=== PATIENT | male | born 1985 | race Caucasian/White ===

== ENCOUNTER 2017-09-28 01:19 | Emergency (ER) | payer BC ==
--- NOTE | 2017-09-28 02:30 | ED ---
Anxiety HPI - General Chief Complaint: Anxiety Stated Complaint: Dizziness/Vision Problems Time Seen by Provider: 09/28/17 01:36 Source: patient Mode of arrival: ambulatory - History of Present Illness Initial Comments: 31-year-old male patient presents to the emergency department today for evaluation of increased anxiety, hallucinations, and delusional episodes. Patient states he has been diagnosed with depression and anxiety in the past. States he takes Zoloft. States over the last 2 weeks he has been having these episodes while at work where he will lose blocks of time, states that he creates these "scenarios" in his head and he is not sure if they are real or not. He states that coworkers have reported bizarre behavior from him including times where he is dancing or acting strange, he does not remember these episodes. He states that today he remembers standing at his station laughing hysterically when there was nothing funny going on. States this is been happening on a daily basis for the last 2 weeks. He also reports that he and his girlfriend broke up 2 weeks ago and that his work life has been stressed since then. He states that people at work are "ganging up on him". He denies any suicidal or homicidal ideation. He denies any history of similar symptoms. He denies any use of alcohol or street drugs. He states that he is unable to sleep because when he lays down he feels jittery and like he is shaking from the inside. Patient denies any recent rash, fever, chills, shortness breath, chest pain, abdominal pain, nausea, vomiting, diarrhea, constipation, back pain, numbness, tingling, weakness, hematuria, dysuria, urinary urgency, urinary frequency, visual changes, or any other complaints. - Related Data Allergies/Adverse Reactions: Allergies Allergy/AdvReac Type Severity Reaction Status Date / Time No Known Allergies Allergy Verified 09/28/17 01:28 Review of Systems ROS Statement: Those systems with pertinent positive or pertinent negative responses have been documented in the HPI. ROS Other: All systems not noted in ROS Statement are negative. Past Medical History Past Medical History: No Reported History History of Any Multi-Drug Resistant Organisms: None Reported Past Surgical History: No Surgical Hx Reported Past Psychological History: No Psychological Hx Reported, Anxiety, Depression Smoking Status: Current every day smoker Past Alcohol Use History: Rare Past Drug Use History: None Reported General Exam Limitations: no limitations General appearance: alert, in no apparent distress, anxious, other (Physical well-developed, well-nourished adult male patient in no acute distress. Vital signs upon presentation are temperature 99.0F, pulse 90, respirations 18, blood pressure 146/92, pulse ox 99% on room air.) Eye exam: Present: normal appearance, PERRL, EOMI. Absent: scleral icterus, conjunctival injection, periorbital swelling ENT exam: Present: normal exam, normal oropharynx, mucous membranes moist Respiratory exam: Present: normal lung sounds bilaterally. Absent: respiratory distress, wheezes, rales, rhonchi, stridor Cardiovascular Exam: Present: regular rate, normal rhythm, normal heart sounds. Absent: systolic murmur, diastolic murmur, rubs, gallop, clicks GI/Abdominal exam: Present: soft, normal bowel sounds. Absent: distended, tenderness, guarding, rebound, rigid Neurological exam: Present: alert, oriented X3, CN II-XII intact, other ( Strength in all 4 extremities is 5/5.) Psychiatric exam: Present: anxious, other (Tearful during history and physical) Skin exam: Present: warm, dry, intact, normal color. Absent: rash Course Vital Signs 09/28/17 01:24 Temperature 99.0 F Pulse Rate 90 Respiratory 18 Rate Blood Pressure 146/92 O2 Sat by Pulse 99 Oximetry Medical Decision Making - Medical Decision Making 31-year-old male patient presented to the emergency department today for evaluation of increased anxiety, hallucinations increased stress. Physical examination is unremarkable. Patient was evaluated by emergency psychiatric services. She reports that patient is having increased stress at work and is being bullied by coworkers. She and the psychiatrist feel that the patient does not meet inpatient criteria at this time. He is not suicidal or homicidal. We discussed this with the patient. He is instructed to follow-up with his therapist as soon as possible. Instructed to return here immediately for any new, worsening, or concerning symptoms in verbalizes understanding and agrees with this plan. - Lab Data Lab Results 09/28/17 Range/Units 02:44 Urine Opiates Screen Not Detected (NotDetected) Ur Oxycodone Screen Not Detected (NotDetected) Urine Methadone Screen Not Detected (NotDetected) Ur Propoxyphene Screen Not Detected (NotDetected) Ur Barbiturates Screen Not Detected (NotDetected) U Tricyclic Antidepress Not Detected (NotDetected) Ur Phencyclidine Scrn Not Detected (NotDetected) Ur Amphetamines Screen Not Detected (NotDetected) U Methamphetamines Scrn Not Detected (NotDetected) U Benzodiazepines Scrn Not Detected (NotDetected) Urine Cocaine Screen Not Detected (NotDetected) U Marijuana (THC) Screen Not Detected (NotDetected) Disposition Clinical Impression: Anxiety Disposition: HOME SELF-CARE Condition: Good Instructions: Generalized Anxiety Disorder (ED) Additional Instructions: Follow-up with your therapist as soon as possible. Return here immediately for any new, worsening, or concerning symptoms. Referrals: None,Stated [Primary Care Provider] - 1-2 days Time of Disposition: 04:36
[2017-09-28 03:10] LABS: Amphetamine Screen,Urine Not Detected (NotDetected); Barbiturate Screen,Urine Not Detected (NotDetected); Benzodiazepines Screen,Urine Not Detected (NotDetected); Cocaine Screen,Urine Not Detected (NotDetected); Methadone Screen, Urine Not Detected (NotDetected); Opiate Screen,Urine Not Detected (NotDetected); Oxycodone Screen, Urine Not Detected (NotDetected); Phencyclidine Screen,Urine Not Detected (NotDetected); Tricyclic Antidepressant,Urine Not Detected (NotDetected); Urn Cannabinoid Scrn Not Detected (NotDetected)
[2017-09-28 04:41] VITALS: BP 137/68; PULSE 76; RESP 17; TEMP 98.7
== END 2017-09-28 04:43 | disposition home or self-care (01) ==
LOC: EC 01:19
DX: F41.9 Anxiety disorder, unspecified (principal); F22 Delusional disorders; F17.200 Nicotine dependence, unspecified, uncomplicated
CPT/HCPCS: 80306; 99283

== ENCOUNTER 2017-09-28 17:12 | Inpatient (IN) | payer BC ==
--- NOTE | 2017-09-28 17:32 | ED ---
General Adult HPI - General Source: patient, RN notes reviewed Mode of arrival: ambulatory Limitations: no limitations <Zenaida Price - Last Filed: 09/28/17 19:47> <Moris Gayle - Last Filed: 09/28/17 20:35> - General Chief complaint: Psychiatric Symptoms Stated complaint: mental health Time Seen by Provider: 09/28/17 17:22 - History of Present Illness Initial comments: 31-year-old male presents to the emergency Department chief complaint of continuing to feel off. He was evaluated last night by psychiatry and discharged home. He states he continues to feel paranoid. He states that he is currently under a lot of stress. he just does not feel right. He states that he does not currently take any psychiatric medications however he does currently see a counselor. He states he just continues not to feel well so he thought that he should be seen.Patient denies any recent fever, chills, shortness of breath, chest pain, back pain, abdominal pain, nausea vomiting, numbness or tingling, dysuria or hematuria, constipation or diarrhea, headaches or visual changes, or any other current symptoms. (Zenaida Price) - Related Data Home Medications Medication Instructions Recorded Confirmed Sertraline [Zoloft] 50 mg PO HS 09/28/17 09/28/17 traZODone HCL 50 mg PO HS 09/28/17 09/28/17 Allergies Allergy/AdvReac Type Severity Reaction Status Date / Time No Known Allergies Allergy Verified 09/28/17 18:46 Review of Systems ROS Other: All systems not noted in ROS Statement are negative. <Zenaida Price - Last Filed: 09/28/17 19:47> ROS Other: All systems not noted in ROS Statement are negative. <Moris Gayle - Last Filed: 09/28/17 20:35> ROS Statement: Those systems with pertinent positive or pertinent negative responses have been documented in the HPI. Past Medical History Past Medical History: No Reported History History of Any Multi-Drug Resistant Organisms: None Reported Past Surgical History: No Surgical Hx Reported Past Psychological History: Anxiety, Depression Smoking Status: Current every day smoker Past Alcohol Use History: Rare Past Drug Use History: None Reported <Zenaida Price - Last Filed: 09/28/17 19:47> General Exam Limitations: no limitations General appearance: alert, in no apparent distress Neck exam: Present: normal inspection. Absent: tenderness, meningismus, lymphadenopathy Respiratory exam: Present: normal lung sounds bilaterally. Absent: respiratory distress, wheezes, rales, rhonchi, stridor Cardiovascular Exam: Present: regular rate, normal rhythm, normal heart sounds. Absent: systolic murmur, diastolic murmur, rubs, gallop, clicks Neurological exam: Present: alert, oriented X3 Psychiatric exam: Absent: homicidal ideation, suicidal ideation Skin exam: Present: warm, dry, intact, normal color. Absent: rash <Zenaida Price - Last Filed: 09/28/17 19:47> Course <Zenaida Price - Last Filed: 09/28/17 19:47> <Moris Gayle - Last Filed: 09/28/17 20:35> Vital Signs 09/28/17 17:14 Temperature 97.6 F Pulse Rate 100 Respiratory 18 Rate Blood Pressure 133/63 O2 Sat by Pulse 100 Oximetry - Reevaluation(s) Reevaluation #1: 09/28/17 19:47 THis case will be signed out to Dr. Gayle. (Zenaida Price) Medical Decision Making <Zenaida Price - Last Filed: 09/28/17 19:47> <Moris Gayle - Last Filed: 09/28/17 20:35> - Medical Decision Making 31-year-old male presents for feeling off. At this time the patient is cleared to be evaluated by psychiatry of any acute medical emergencies. (Zenaida Price) Medical decision making; this is a 31-year-old male presents emergency room for psychiatric evaluation. He was evaluated by psychiatric nurse. The patient will be admitted to [facility]. diagnosis of paranoid schizophrenia. I have completed a certificate for admission. The patient's drug triage was negative for drugs of abuse. Dr. Gayle (Moris Gayle) - Lab Data Lab Results 09/28/17 Range/Units 17:32 Urine Opiates Screen Not Detected (NotDetected) Ur Oxycodone Screen Not Detected (NotDetected) Urine Methadone Screen Not Detected (NotDetected) Ur Propoxyphene Screen Not Detected (NotDetected) Ur Barbiturates Screen Not Detected (NotDetected) U Tricyclic Antidepress Not Detected (NotDetected) Ur Phencyclidine Scrn Not Detected (NotDetected) Ur Amphetamines Screen Not Detected (NotDetected) U Methamphetamines Scrn Not Detected (NotDetected) U Benzodiazepines Scrn Not Detected (NotDetected) Urine Cocaine Screen Not Detected (NotDetected) U Marijuana (THC) Screen Not Detected (NotDetected) Disposition <Zenaida Price - Last Filed: 09/28/17 19:47> <Moris Gayle - Last Filed: 09/28/17 20:35> Clinical Impression: Paranoid schizophrenia Disposition: TRANSFER TO PSYCH HOSP/UNIT Condition: Serious Referrals: Gadiel Bay MD [Primary Care Provider] - 1-2 days
[2017-09-28 18:00] LABS: Amphetamine Screen,Urine Not Detected (NotDetected); Barbiturate Screen,Urine Not Detected (NotDetected); Benzodiazepines Screen,Urine Not Detected (NotDetected); Cocaine Screen,Urine Not Detected (NotDetected); Methadone Screen, Urine Not Detected (NotDetected); Opiate Screen,Urine Not Detected (NotDetected); Oxycodone Screen, Urine Not Detected (NotDetected); Phencyclidine Screen,Urine Not Detected (NotDetected); Tricyclic Antidepressant,Urine Not Detected (NotDetected); Urn Cannabinoid Scrn Not Detected (NotDetected)
[2017-09-28] MEDS ORDERED: MAGNESIUM HYDROXIDE 2,400 MG/10 ML CUP PO PRN (21:02)
[2017-09-28] MEDS ORDERED: ZIPRASIDONE 20 MG VIAL IM PRN (21:02)
[2017-09-28] MEDS ORDERED: MAG HYDROX/AL HYDROX/SIMETH 30 ML CUP PO PRN (21:02)
[2017-09-28] MEDS ORDERED: ACETAMINOPHEN TAB 325 MG TAB PO PRN (21:02)
[2017-09-28] MEDS ORDERED: LORazepam 2 MG/ML INJ IM PRN (21:04)
[2017-09-28] MEDS: LORazepam 1 MG TAB PO PRN (23:46)
[2017-09-29 08:35] LABS: Basophils # (A) 0.1 k/uL (0-0.2); Basophils % (A) 1 %; Eosinophils # (A) 0.3 k/uL (0-0.7); Eosinophils % (A) 4 %; HCT 50.2 % (39.0-53.0); Lymphocytes # (A) 2.7 k/uL (1.0-4.8); Lymphocytes % (A) 40 %; MCV 97.1 fL (80.0-100.0); Mean Platelet Volume 6.2; Monocytes # (A) 0.5 k/uL (0-1.0); Monocytes % (A) 7 %; Neutrophils # (A) 3.1 k/uL (1.3-7.7); Neutrophils % (A) 45 %; Platelet Count 259 k/uL (150-450); RBC 5.17 m/uL (4.30-5.90); RDW 11.9 % (11.5-15.5); WBC 6.8 k/uL (3.8-10.6)
[2017-09-29 08:49] LABS: ALT 28 U/L (21-72); AST 25 U/L (17-59); Albumin 4.7 g/dL (3.5-5.0); Alkaline Phosphatase 64 U/L (38-126); Anion Gap 15 mmol/L; Blood Urea Nitrogen 14 mg/dL (9-20); Calcium 10.1 mg/dL (8.4-10.2); Carbon Dioxide 23 mmol/L (22-30); Chloride 103 mmol/L (98-107); Cholesterol 190 mg/dL (<200); Glucose 71 mg/dL (74-99); HDL Cholesterol 51 mg/dL (40-60); LDL Cholesterol,Calculated 123 mg/dL (0-99); Potassium 4.4 mmol/L (3.5-5.1); Sodium 141 mmol/L (137-145); Total Bilirubin 0.7 mg/dL (0.2-1.3); Total Protein 7.8 g/dL (6.3-8.2); Triglycerides 82 mg/dL (<150)
[2017-09-29] MEDS: ARIPiprazole 5 MG TAB PO SCH (09:01)
--- NOTE | 2017-09-29 09:46 | HP ---
HISTORY AND PHYSICAL DATE OF SERVICE: September 29, 2017. 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 The patient presented to the emergency room with psychosis and he was admitted on involuntary basis. CHIEF COMPLAINT: "There is something not right in my head." HISTORY OF PRESENT ILLNESS: The patient stated that he broke up with his girlfriend who has been working in the same factory couple of weeks ago and since then he has been feeling paranoia, suspicious, feeling that people at work talking about him there is conspiracy against him. The patient was very disorganized and guarded, vague. The patient stated that he does feel that he has been poisoned by co-worker, he did admit that he has been hearing voices, but not able to tell me what is the content. The patient kept stating "I know I do not remember." Patient stated "I want to inflict pain on those that are harassing me". Then he was very anxious and nervous, rubbing his face saying "I do feel in danger." The patient seems to be responding to internal stimuli. When I did ask the patient what triggered this 2 weeks ago. He kept saying "I don't know". He gets easily agitated. Then he starts telling me that he does feel that his ex-girlfriend might have a sexually transmitted disease and potentially she did give it to him. Even he stated "I do feel that she has been spreading rumors about me at work". The patient reported that for the last 2 weeks he has been having trouble falling asleep, poor appetite. His mind has been jumping from 1 thing to another. The patient denied any suicidal ideation. However, as I mentioned before, he has a lot of anger towards his co-worker as he does believe that they are talking about him and want to hurt him physically and mentally. There is a lot of and blocking in his thought content with a lot of ideas of reference. Even he thought that I can read his mind. His current psychotropic medication is Zoloft 50 mg at bedtime and trazodone 50 mg at bedtime. He just started this medication a couple of weeks ago. PAST PSYCHIATRIC HISTORY: There is one previous admission in 1992 at the [facility]. The patient could not remember what was the reason, but he stated that at that time his parents got . There is no previous suicide attempt. The patient is not aware about what his previous diagnosis in 1992. SUBSTANCE ABUSE HISTORY: Nicotine, he has been smoking 1 pack a day for the last 14 years. The patient denied any illicit drug use. His urine drug screen was negative. LEGAL PROBLEM: He denied any past or current legal issue. MEDICAL ALLERGY: There is no acute medical problem. PHYSICAL EXAMINATION: Vital signs: Temperature 97.6, pulse 100, respiration rate 18, blood pressure 133/63. FAMILY HISTORY OF PSYCHIATRIC ILLNESS: Mother had depression. Maternal uncle is an alcohol and another maternal uncle has "Bipolar or schizophrenia". SOCIAL AND FAMILY HISTORY: The patient has 1 younger sister. His parents have been since 1992. The patient dropped out of school in the 10th grade and later on in 2009 he did get his GED. He has been working in the same factory for the last year. He never had been and there is no children. He has been living on his own and he stated that he is very close to his mother. When asked about any history of physical or sexual abuse. He said "I do not know why I am so confused. I do not remember maybe yes or no". MENTAL STATUS EXAMINATION: The patient is casually dressed, disheveled. He appears his stated age. He is very guarded, vague, confused, disorganized. Speech is limited in productivity. There is halting and blocking. Stated mood "I am very confused." Attention and concentration are poor. Thought process is tangential with looseness association. There is evidence of persecutory delusion and auditory hallucination. He denied any current suicide ideation. He denied homicidal ideation. However, he said "I want to inflict pain on some people" the patient kept his eyes closed during the interview and he seems to be responding to internal stimuli during the examination. The patient's judgment and insight are poor. The patient estimated intelligence is average to below. DIAGNOSIS: Unspecified psychosis. Rule out major depression with psychotic features. Rule out schizoaffective disorder. PLAN OF TREATMENT: 1. The patient was admitted to the inpatient unit for safety. He was admitted on involuntary basis. 2. I will start him on low dose of Abilify and will titrate Abilify to eliminate delusion and irrational thinking. 3. Patient will participate in group therapy and individual therapy as tolerated. 4. Hospitalist will see patient for history and physical exam. 5. sex worker or escort will assist for collateral information in addition to after care followup. 6. Estimated length of stay is 3-5 days. MMODL / IJN: [id number] /
[2017-09-29] MEDS: NICOTINE 14MG/24HR PATCH TRANSDERM SCH (10:28)
--- NOTE | 2017-09-29 23:13 | CONS ---
CONSULTATION DATE OF SERVICE: 09/29/2017. REASON FOR CONSULTATION: Medical management. BRIEF HISTORY: Patient is a 31-year-old male patient was brought to the emergency room with a complaint of feeling off. The patient was evaluated by psych service the day prior to this and was discharged home. The patient states that he continues to feel paranoid and he is under a lot of stress, not currently taking any psychiatric medications. He is admitted for further evaluation. His past medical history is significant for anxiety, depression. PAST SURGICAL HISTORY: Unremarkable. SOCIAL HISTORY: Patient smokes every day. No history of alcohol or drug abuse. FAMILY HISTORY: Negative for hypertension, diabetes, or coronary artery disease. REVIEW OF SYSTEM: Constitutional: No fever, chills. HEENT: No vision or hearing loss. Respiratory: No cough or shortness of breath. Cardiovascular: No chest pain, palpitations. Genitourinary: No dysuria, hematuria. GI no nausea, vomiting, diarrhea. Rest of 14-point review of system is unremarkable. PHYSICAL EXAMINATION: Vital signs: Temp 97.6, pulse 100, respiration 18, blood pressure 133/60, O2 saturation 100%. HEENT atraumatic, normocephalic. Pupils equal and react to light. Extraocular movements intact. Buccal mucosa is fair. NECK: Supple. No goiter, lymphadenopathy. JVD is negative. No carotid bruit heard. Lungs are clear to auscultate. No rales, rhonchi, wheezes. Heart is regular rate and rhythm without murmurs, gallop rhythm. ABDOMEN: Soft, nontender, nondistended. Bowel sounds positive. EXTREMITIES: No edema, clubbing or cyanosis. Neurological examination: Cranial nerves 2-12 grossly intact. No gross motor or sensory deficits. ASSESSMENT: Unspecified psychosis, possible major depression with psychotic features. Rule out schizoaffective disorder. PLAN: The patient is admitted to the mental health unit. We will monitor the patient with you. We wish to thank you for this kind consultation. MMODL / IJN: [id number] /
[2017-09-30] MEDS: NICOTINE 14MG/24HR PATCH TRANSDERM SCH (09:15)
[2017-09-30] MEDS: ARIPiprazole 5 MG TAB PO SCH (09:15)
--- NOTE | 2017-09-30 11:39 | P.PN ---
Progress Note - Text Progress Note Date: 09/30/17 Interval history: The patient is seen in the office , he is less paranoia ,more cooperative and not guarded and evasive as yesterday ,denies any sleeping or appetite problems ,denies any AH or VH ,denies any SI or HI,patient is still endorsing irrational fear from his GF of one year "I can not leave her she will hurt me",patient decided to quiet his current job and trying to find new one "WHEN I LOOK AT HER AT WORK I HAVE PANIC ATTACK",patient stated that he is afraid to live on his own as before "I WILL ASK MY MOTHER TO STAY WITH ME " Mental status exam: The patient is caucassian male appearing his stated age. He is dressed in his own clothing Better grooming Eye contact is intermittent. Speech is non spontaneous ,slow and quiet. He reports his mood "Worry and scared" He is endorsing no suicidal thoughts ,he deniers any AH or VH ,underlying paranoia and suspicious thinking. Thought process is linear. He demonstrates no verbal or physical aggressiveness he demonstrates no abnormal involuntary movements. PLAN: continue current medications He is encouraged to comply with groups. . He requires continued psychiatric hospitalization ,SW to assist in collateral information and after care
[2017-09-30] MEDS: LORazepam 1 MG TAB PO PRN (23:48)
[2017-10-01] MEDS: NICOTINE 14MG/24HR PATCH TRANSDERM SCH (08:52)
[2017-10-01] MEDS: ARIPiprazole 5 MG TAB PO SCH (08:52)
--- NOTE | 2017-10-01 10:30 | P.PN ---
Progress Note - Text Progress Note Date: 10/01/17 Saw this patient for a follow up exam today.Pt was first hospitalized at the age of 7. Has been treated for "Depression" by his family doctor with zoloft and Trazodone. Pt has history of getting hyperactive, not able to sleep well, doing lots of things etc for several days in the past. Recently, he has been feeling somewhat paranoid with persecutory feelings, his girl friend was too hard on him, was putting him down etc. 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 Has been feeling overwhelmed. He was started on Abilify 5mg a day and feels a little better and clearer headed. No side effects. Denies current paranoia, hallucintaions, suicidal and homicidal ideas. He was advised of his condition and he agreed to get Abilify increased to 10mg daily. His sensorium is clear. AIMS done and does not have any signs of Dyskinesia. A: Probable Bipolar disorder. P: Increase Abilify. Pt signed his consent to take meds.
[2017-10-02 07:18] LABS: Appearance,Urine Clear (Clear); Bilirubin,Urine Negative (Negative); Blood,Urine Negative (Negative); Color,Urine Light Yellow; Glucose,Urine (UA) Negative (Negative); Ketones,Urine Negative (Negative); Leukocyte Esterase,Urine Negative (Negative); Nitrite,Urine Negative (Negative); Protein,Urine Negative (Negative); Specific Gravity,Urine 1.008 (1.001-1.035); Urobilinogen,Urine <2.0 mg/dL (<2.0)
[2017-10-02] MEDS: ARIPiprazole 10 MG TAB PO SCH (08:22)
[2017-10-02] MEDS: NICOTINE 14MG/24HR PATCH TRANSDERM SCH (08:22)
--- NOTE | 2017-10-02 10:36 | P.PN ---
Progress Note - Text Progress Note Date: 10/02/17 Patient is feeling better today. He feels relaxed today. He slept well last night. He took his increased dose of Abilify earlier in the morning today. He does not have any adverse effect. He had called his uncle to notify his employer about his hospital stay and his union is working on helping him out about it. He has been attending his groups and other activities. He is polite and friendly and cooperative. He does not show any psychomotor agitation or retardation. His speech is spontaneous relevant and goal directed. His mood is more relaxed and is rather cheerful today. Affect is appropriate. He denies hallucinations and delusional thinking. He denies suicidal and homicidal ideas. His sensorium is clear. 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 Continue current medication and treatment. Consider discharging him tomorrow if everything goes well today.
[2017-10-03] MEDS: LORazepam 1 MG TAB PO PRN (01:22)
[2017-10-03 06:47] VITALS: BP 112/71; PULSE 72; RESP 16; TEMP 97.7
[2017-10-03] MEDS: ARIPiprazole 10 MG TAB PO SCH (08:34)
[2017-10-03] MEDS: NICOTINE 14MG/24HR PATCH TRANSDERM SCH (08:34)
--- NOTE | 2017-10-03 09:40 | P.DS ---
Providers Date of admission: 09/28/17 21:00 Expected date of discharge: 10/03/17 Attending physician: Benedicto Leonardo Consults: 09/28/17 21:02 Consult Physician Routine Consulting Provider: Harpal Lopez Consult Reason/Comments: Follow Up H & P Do you want consulting provider notified?: Yes Primary care physician: Juan Jairo [facility] Course: Patient had his physical examination psychiatric evaluation and psychosocial evaluation he was started on Abilify 5 mg a day by the admitting doctor. He took the medication without any adverse effects. However he continued to be somewhat dysphoric and Abilify was increased to 10 mg a day. He started to improve a lot, his mood became more euthymic and appropriate. He continued not to be paranoid and also became free of suicidal and homicidal thoughts. He was attending all his groups and learn some better coping skills. Since he felt well enough to go home it was agreed to discharge him. He was given a 30 day prescription for Abilify 10 mg a day. He was advised not to drive or operate missionary if he felt sleepy. He was advised not to drink alcohol or use drugs , true called his therapist or go to nearest ER if he was getting suicidal or homicidal thoughts or if he felt his condition is getting worse. Diagnosis on discharge: Unspecified bipolar and related disorder F 31.9. NKDA. Patient Condition at Discharge: Good Plan - Discharge Summary Discharge Rx Participant: No New Discharge Prescriptions: New Acetaminophen Tab [Tylenol] 650 mg PO Q4HR PRN tab PRN Reason: Mild Pain/Discomfort ARIPiprazole [Abilify] 10 mg PO DAILY 30 Days #30 tab Mag Hydrox/Al Hydrox/Simeth [Maalox] 30 ml PO Q4HR PRN cup PRN Reason: Gi Upset Magnesium Hydroxide [Milk of Magnesia Concentrate] 2,400 mg PO DAILY PRN ml PRN Reason: Constipation Discontinued traZODone HCL 50 mg PO HS Sertraline [Zoloft] 50 mg PO HS Discharge Medication List ARIPiprazole [Abilify] 10 mg PO DAILY 30 Days #30 tab 10/03/17 [Rx] Acetaminophen Tab [Tylenol] 650 mg PO Q4HR PRN tab 10/03/17 [Rx] Mag Hydrox/Al Hydrox/Simeth [Maalox] 30 ml PO Q4HR PRN cup 10/03/17 [Rx] Magnesium Hydroxide [Milk of Magnesia Concentrate] 2,400 mg PO DAILY PRN ml [Rx] Follow up Appointment(s)/Referral(s): intake, intake [Other] - 10/17/17 1:00 pm (Intake 10/17/17 at 1:00pm) Gadiel Bay MD [Primary Care Provider] - 1-2 days Discharge Disposition: HOME SELF-CARE
== END 2017-10-03 12:30 | disposition home or self-care (01) | DRG 885 ==
LOC: EC 17:12 → 3MHU 21:00
PROVIDERS: ADMIT Psychiatry & Neurology Psychiatry; ATTEND Psychiatry & Neurology Psychiatry
DX: F31.9 Bipolar disorder, unspecified (principal); F22 Delusional disorders; F17.210 Nicotine dependence, cigarettes, uncomplicated; R45.1 Restlessness and agitation; R63.0 Anorexia; F41.9 Anxiety disorder, unspecified; G47.9 Sleep disorder, unspecified; Z81.8 Family history of other mental and behavioral disorders; Z81.1 Family history of alcohol abuse and dependence; Z79.899 Other long term (current) drug therapy
CPT/HCPCS: 80053; 80061; 80306; 81003; 82075; 83036; 84443; 85025; 99285